=== PATIENT | male | born 1960 | race Caucasian/White ===

== ENCOUNTER 2019-02-02 10:04 | Day surgery (SDC) | payer BC ==
[~2019-02-02] VITALS: Ht 180.3 cm; Wt 92.0 kg
[2019-02-02] VITALS (16 sets, daily range): BP systolic 111–131; BP diastolic 62–72; PULSE 44–57; RESP 11–18; Ht 180.3 cm; Wt 92.0 kg
[~2019-02-02 10:04] MED LIST: CEFAZOLIN 1 GM INJ ONE; LIDOCAINE 2% (SDV) 5 ML INJ ONE; PROPOFOL 200 MG INJ ONE; ROCURONIUM 50 MG INJ ONE
--- NOTE | 2019-02-02 10:38 | HPN ---
Date/Time of Note Date/Time of Note DATE: 02/02/19 TIME: 10:38 Interval H&P Admission Note Pt. seen H&P reviewed: No system changes SHAQ DOUGHERTY Feb 02, 2019 10:38
[2019-02-02] MEDS ORDERED: METO-336 PO (11:04)
[2019-02-02] MEDS ORDERED: LEVO112T42 PO (11:05)
[2019-02-02] MEDS ORDERED: FINA5TAB4 PO (11:05)
[2019-02-02] MEDS ORDERED: DOXA4TAB3 PO (11:05)
[2019-02-02] MEDS ORDERED: ASPI81TA52 PO (11:06)
[2019-02-02] MEDS ORDERED: CHOL100062 PO (11:06)
--- NOTE | 2019-02-02 11:46 | PREAC ---
Date/Time of Note Date/Time of Note DATE: 02/02/19 TIME: 11:43 Anesthesia Eval and Record Evaluation Time Pre-Procedure Interview DATE: 02/02/19 TIME: 11:43 Age 58 Sex male NPO: 8 hrs Preoperative diagnosis right wrist osteoarthritis Planned procedure right wrist arthroscopy, fibrocartilage repair Past Medical History Past Medical History: Includes Cardio: PPM/AICD, CHF Endo: Other (thyroid ca) Musculoskeletal: Osteoarthritis GI: Obesity Surgery & Anesthesia Issues No known issue Meds Anticoagulation: No Beta Sweta within 24 hr: Yes Reported Medications Cholecalciferol* (Vitamin D3*) 1,000 Unit Tablet, 1000 UNIT PO DAILY, TAB 02/02/19 Aspirin (Low Dose Aspirin) 81 Mg Tablet.dr, 81 MG PO DAILY, #30 TAB 02/02/19 Doxazosin Mesylate* (Doxazosin Mesylate*) 4 Mg Tablet, 4 MG PO HS, TAB 02/02/19 Levothyroxine Sodium* (Levoxyl*) 112 Mcg Tablet, 112 MCG PO BEFORE BREAKFAST, #30 TAB 02/02/19 Finasteride* (Finasteride*) 5 Mg Tablet, 5 MG PO DAILY, TAB 02/02/19 Metoprolol Succinate* (Toprol XL*) 100 Mg Tab.sr.24h, 100 MG PO DAILY, #30 TAB 02/02/19 Meds reviewed: Yes Allergies Coded Allergies: sulfamethoxazole (Verified Allergy, Unknown, 02/02/19) trimethoprim (Verified Allergy, Unknown, 02/02/19) Allergies Reviewed: Yes Labs/Studies Labs Reviewed: Reviewed by anesthesiologist test: N/A Studies: ECG, CXR Pre-procedure Exam Last vitals Vital Signs Date Temp Pulse Resp B/P (MAP) Pulse Ox O2 O2 Flow FiO2 Time Delivery Rate 02/02/19 98.5 57 16 131/71 95 Room Air 11:36 (91) Airway: Adequate mouth opening, Adequate thyromental dist Mallampati: Mallampati II Teeth: Normal Lung: Normal Heart: Normal ASA Physical Status ASA physical status: 3 Emergency: None Planned Anesthetic General/MAC: LMA Nerve block: Brachial plexus (right) Planned Pain Management Single shot nerve block, Parenteral pain med Pre-operative Attestations Prior to commencing anesthesia and surgery, the patient was re-evaluated, there was verification of: *The patient's identity *The results of appropriate recent lab work and preoperative vital signs *The above evaluation not changing prior to induction *Anesthetic plan, risk benefits, alternative and complications discussed with patient/family; questions answered; patient/family understands, accepts and wishes to proceed. YUE PEREZ Feb 02, 2019 11:46
[2019-02-02] MEDS ORDERED: BUPIVACAINE 0.5% (SDV) 30 ML INJ ONE ×2 (11:50→11:53)
[2019-02-02] MEDS ORDERED: ROPIVACAINE 0.5 % 30 ML VIAL ONE (11:51)
[2019-02-02] MEDS ORDERED: MIDAZOLAM 1 MG/ML 2 ML INJ ONE (11:53)
[2019-02-02] MEDS ORDERED: NEOMYC/POLYMYX/BACIT 30 GM OINT ONE (11:53)
[2019-02-02] MEDS ORDERED: POLYMYXIN/BACITRACIN 1L IRRIG ONE (11:54)
[2019-02-02] MEDS ORDERED: ONDANSETRON 4 MG INJ ONE (13:07)
[2019-02-02] MEDS ORDERED: DEXAMETHASONE 4 MG/ML 5 ML INJ ONE (13:07)
[2019-02-02] MEDS ORDERED: NEOSTIGMINE 3 MG/3 ML SYRINGE ONE (13:29)
[2019-02-02] MEDS ORDERED: GLYCOPYRROLATE 0.4 MG INJ ONE (13:29)
--- NOTE | 2019-02-02 13:49 | PAC ---
Date/Time of Note Date/Time of Note DATE: 02/02/19 TIME: 13:49 Post-Anesthesia Notes Post-Anesthesia Note Last documented vital signs Vital Signs Date Temp Pulse Resp B/P (MAP) Pulse Ox O2 O2 Flow FiO2 Time Delivery Rate 02/02/19 98.5 57 16 131/71 95 Room Air 1349 (91) Activity: WNL Respiratory function: WNL Cardiovascular function: WNL Mental status: Baseline Pain reasonably controlled: Yes Hydration appropriate: Yes Nausea/Vomiting absent: Yes YUE PEREZ Feb 02, 2019 13:49
[2019-02-02] MEDS ORDERED: DIPHENHYDRAMINE 50 MG INJ IV PRN (14:00)
[2019-02-02] MEDS ORDERED: KETOROLAC 30 MG INJ IV PRN (14:00)
[2019-02-02] MEDS ORDERED: ONDANSETRON 4 MG INJ IV PRN (14:00)
[2019-02-02] MEDS ORDERED: FENTAnyl 50 MCG/ML VIAL IV PRN ×3 (14:00)
[2019-02-02] MEDS ORDERED: METOCLOPRAMIDE 10 MG INJ IV PRN (14:00)
[2019-02-02] MEDS ORDERED: OXYCODONE/ACETAMINOPHEN (5/325) TAB PO PRN ×2 (14:00)
[2019-02-02] MEDS ORDERED: LABETALOL HCL 20MG INJ IV PRN (14:00)
[2019-02-02] MEDS ORDERED: MEPERIDINE 25 MG INJ IV PRN (14:00)
[2019-02-02] MEDS ORDERED: EPHEDrine SULFATE 50 MG/5 ML SYG IV PRN (14:00)
[2019-02-02] MEDS ORDERED: HYDROmorphONE 1 MG/5 ML IV SYRINGE IV PRN ×3 (14:00)
[2019-02-02] MEDS ORDERED: MIDAZOLAM 1 MG/ML 2 ML INJ IV PRN (14:00)
[2019-02-02] MEDS ORDERED: ALBUTEROL 0.083% (NEB) 2.5 MG/3 ML AMP HHN PRN (14:00)
[2019-02-02] MEDS ORDERED: hydrALAzine 20 MG INJ IV PRN (14:00)
--- NOTE | 2019-02-02 18:05 | OPPN ---
Date/Time of Note Date/Time of Note DATE: 02/02/19 TIME: 18:04 Operative Report Preoperative Diagnosis right wrist TFCC tear, DRUJ osteoarthritis Postoperative Diagnosis right wrist TFCC tear, DRUJ osteoarthritis Operation/Procedure Performed right wrist arthroscopy with debridement of TFCC tear right distal ulna hemiresection arthroplasty with palmaris longus tendon autograft Surgeon see signature line plastic surgery assistant none Anesthesia: general Estimated blood loss: 0 - 10 ml's Transfusion Required none Specimen none Grafts/Implants none Complications none SHAQ DOUGHERTY Feb 02, 2019 18:05
--- NOTE | 2019-02-02 19:45 | OPR ---
DATE OF OPERATION: 02/02/2019 SURGEON: Shaq Harding MD ANESTHESIA: General plus peripheral nerve block. PREOPERATIVE DIAGNOSES: 1. Right wrist distal radioulnar joint osteoarthritis. 2. Right wrist triangular fibrocartilage complex tear. POSTOPERATIVE DIAGNOSES: 1. Right wrist distal radioulnar joint osteoarthritis. 2. Right wrist triangular fibrocartilage complex tear. PROCEDURE: 1. Right wrist distal ulna carlitos-resection arthroplasty for arthritis of the DRUJ. 2. [place] of right wrist and forearm palmaris longus tendon autograft for interposition arthroplast y at the right wrist DRUJ. 3. Right wrist diagnostic arthroscopy with arthroscopic debridement of the TFCC. OPERATIVE FINDINGS: Right wrist DRUJ osteoarthritis with TFCC tear. INDICATION FOR PROCEDURE: A 58-year-old male with longstanding right wrist pain who failed conservat jeronimo management including activity modification and injections. He elected to proceed with surgical i ntervention, understanding the risks and benefits. DESCRIPTION OF THE PROCEDURE: The patient was seen in the preoperative area and all further question s were answered. Again, he gave informed consent, understanding the risks and benefits. He was take n to the operative suite and placed in supine position. The Anesthesia team performed a peripheral n erve block and patient was placed under general anesthesia. Ancef 2 grams IV given and tourniquet pl aced in the right upper extremity. Right upper extremity was prepped with ChloraPrep stick and drape d in the usual sterile fashion. Esmarch bandage was used to exsanguinate the extremity and tournique t inflated to 250 mmHg. Attention was first turned to the wrist arthroscopy, and finger traps were applied to the fingers and 10 pounds of traction attached. The 3-4 portal was established with sharp dissection through the sk in and subcutaneous tissue and curved hemostat through the wrist capsule. A diagnostic arthroscopy w as performed which showed extensive synovitis as well as evidence of previous steroid injection with precipitate from the steroid. There was a large central TFCC tear with unstable flaps. The 6R judy l was established and an arthroscopic synovectomy was performed throughout the wrist joint. The arth roscopic shaver was also used to debride back the TFCC to stable edges. There was fraying of the sca pholunate ligament which was debrided back using the arthroscopic shaver. The shaver and arthroscope were removed from the wrist, and attention was turned to the DRUJ carlitos-resection arthroplasty. A longitudinal incision incorporating the 6R portal was used with sharp dissection through the skin a nd subcutaneous tissue. Tenotomy scissors was used to dissect down to the wrist capsule, which was i ncised longitudinally at the DRUJ. The ECU tendon was protected and the TFCC was protected distally. A full-thickness arthrotomy was made and the distal ulna and DRUJ were visualized. The distal ulna had significant osteophyte formation, and an oscillating saw was used to do a matched carlitos-resection arthroplasty to the distal radius. There was adequate space after the carlitos-resection arthroplasty t hroughout pronation and supination. Attention was then turned to harvesting the palmaris longus tendon for interposition arthroplasty. T he palmaris longus was identified at the wrist crease volarly and a 2 cm incision was made. The palm beth longus tendon was isolated and 2 small stab incisions were made proximally to harvest the tendon . The wounds were copiously irrigated and the skin closed with 5-0 nylon. The palmaris longus tendo n was then placed into a curved hemostat and was made into a ball of tendon sutured together with 3-0 Ethibond suture. The tendon mattress was then placed in the space between the distal radius and dis alexa ulna and was sutured to the surrounding capsular tissue. The capsular layer was closed with 3-0 Ethibond suture. Wound copiously irrigated again. The skin closed with 5-0 nylon. Xeroform placed over the wounds followed by sterile gauze, Webril and a long arm splint with the wrist in neutral rot ation. Tourniquet deflated after 58 minutes. The patient was awakened from anesthesia. He was take n to postoperative suite in stable condition. He tolerated the procedure well without complication. SPECIMENS: None. ESTIMATED BLOOD LOSS: 5 mL COUNTS: Sponge, instrument, needle counts correct. TOURNIQUET TIME: 58 minutes CONDITION ON DISCHARGE: Stable. The patient was given a nonrefillable 5-day prescription for pain medication for the surgery today. Dictated By: SHAQ BUSTOS/FABIAN Conf#: [id number] DID#: [id number]
== END 2019-02-02 16:10 | disposition home or self-care (01) ==
LOC: SDS 10:04
PROVIDERS: ATTEND Orthopaedic Surgery Hand Surgery
DX: M19.031 Primary osteoarthritis, right wrist (principal); M24.131 Other articular cartilage disorders, right wrist; I50.9 Heart failure, unspecified; Z95.810 Presence of automatic (implantable) cardiac defibrillator
CPT/HCPCS: 25447; 26485; 85610; 85730; J0690; J1100; J2250; J2405; J2710; J2795